=== PATIENT | female | born 1960 | race Caucasian/White ===

== ENCOUNTER → 2017-09-01 | Day surgery (SDC) | payer BC ==
[~2017-09-01] MED LIST: ASPI-183 PO; ASPI81 PO; AUGM875T3 PO; BUPIVACAINE/EPINEPHRINE 0.5% PF 10 ML VIAL ONE; HEPARIN SODIUM - IV 10,000 UNITS/10 ML VIAL ONE; LACTATED RINGER'S 1000 ML INJ 1,000 ML ONE; MIDAZOLAM HCL 2 MG/2 ML VIAL ONE; MULT-65 PO; PROPOFOL 500 MG/50 ML BTL IV ONE; ceFAZolin 2 GM PREMIX 50 ML ONE
--- NOTE | 2017-09-01 13:15 | TN ---
cc: Arias Mercer MD DATE OF SURGERY: 09/01/2017 DATE OF PROCEDURE: 09/01/2017 PREOPERATIVE DIAGNOSIS: Metastatic left breast cancer. POSTOPERATIVE DIAGNOSIS: Metastatic left breast cancer. PROCEDURE PERFORMED: Right subclavian Infusaport with intraoperative fluoroscopy. SURGEON: Arias Mercer MD ANESTHESIA: TIVA with local. COMPLICATIONS: None. INDICATIONS FOR PROCEDURE: Ms. Antonio is a very pleasant 57-year-old female who presented with a left axillary node. She underwent workup and this was found to be a metastatic left breast cancer. She is going to undergone neoadjuvant chemotherapy. She requires Infusaport placement for chemotherapy. Risks and benefits of Infusaport placement was discussed with her, and she was agreeable. DETAILS OF PROCEDURE: The patient was identified, brought to the operating room, and placed supine on the operating table. After adequate IV sedation was achieved, the anterior neck and chest was prepped and draped in standard surgical fashion. A 0.25% Marcaine was injected into the skin and subcutaneous tissue around the right clavicle. Right subclavian vein was then accessed without difficulty using 18-gauge needle. Guidewire was then advanced and followed with direct fluoroscopy to the level of the superior vena cava. Next, a subcutaneous pocket was made several centimeters away from the puncture site medial to the patient's bra strap area. A 0.25% Marcaine was injected and a transverse incision was made. Pocket was made with blunt dissection. Next, the introducer was placed over the guidewire and followed to the level of the superior vena cava using direct fluoroscopy. Next, the catheter was introduced and advanced to about 25 cm, again, with fluoroscopy. Catheter was then tunneled down to the Infusaport site using a hemostat. The catheter was then backed up to the level of the superior vena cava, right atrium junction. It was then attached to the port with the locking device. The port was placed into the pocket and secured with a 2-0 Prolene suture. Pocket was injected with additional local anesthetic and then closed in 2 layers with a 4-0 Vicryl. Sterile dressings were applied, and the patient was awakened, brought to recovery in stable condition. Chest x-ray will be obtained in the recovery room. Arias MD NESTOR Santana/OFELIA , 01:05 PM , 01:14 PM
== END | disposition home or self-care (01) ==
LOC: ESDC 10:56
PROVIDERS: ATTEND Surgery Trauma Surgery
DX: C50.912 Malignant neoplasm of unspecified site of left female breast (principal)
CPT/HCPCS: 00532; 36561; 77001; C1788; J0690; J1644; J2250; J3010; J7120

== ENCOUNTER 2017-09-08 09:02 | Day surgery (SDC) | payer BC ==
[2017-09-08] MEDS ORDERED: SODIUM CHLOR 0.9% 1000 ML IV (09:30)
[2017-09-08] MEDS: fentaNYL CITRATE 250 MCG/5 ML AMP (10:49)
[2017-09-08] MEDS: MIDAZOLAM HCL 5 MG/5 ML VIAL (10:50)
[2017-09-08] MEDS: LIDOCAINE HCL 1% 10 ML VIAL OTHER (11:45)
[2017-09-08] MEDS: IOHEXOL 350 MG/ML 50 ML BTL (for RAD DIAG) IVCONTRAST (13:36)
== END 2017-09-08 14:05 | disposition home or self-care (01) ==
LOC: HRAD 09:02 → HRIP 09:06 → HRAD 14:05
DX: C79.51 Secondary malignant neoplasm of bone (principal); C50.919 Malignant neoplasm of unspecified site of unspecified female breast; T85.698A Other mechanical complication of other specified internal prosthetic devices, implants and grafts, initial encounter; E78.5 Hyperlipidemia, unspecified; Z86.718 Personal history of other venous thrombosis and embolism
CPT/HCPCS: 20225; 36598; 77012; 88305; 88307; 88311; 88341; 88342; 99152; 99153

== ENCOUNTER 2017-09-10 09:55 | Day surgery (SDC) | payer BC ==
[~2017-09-10] VITALS: Ht 170.2 cm; Wt 102.5 kg
[2017-09-10] VITALS (7 sets, daily range): BP systolic 121–139; BP diastolic 66–83; PULSE 55–78; RESP 17–20; TEMP 97.8–98; O2SAT 94–97
[~2017-09-10 09:55] MED LIST changes: -ASPI81 PO; -AUGM875T3 PO; -BUPIVACAINE/EPINEPHRINE 0.5% PF 10 ML VIAL ONE; -HEPARIN SODIUM - IV 10,000 UNITS/10 ML VIAL ONE; -LACTATED RINGER'S 1000 ML INJ 1,000 ML ONE; -MIDAZOLAM HCL 2 MG/2 ML VIAL ONE; -PROPOFOL 500 MG/50 ML BTL IV ONE; -ceFAZolin 2 GM PREMIX 50 ML ONE
[2017-09-10] MEDS ORDERED: TYLE325T PO (10:22)
[2017-09-10] MEDS ORDERED: fentaNYL CITRATE 250 MCG/5 ML AMP ONE (11:36)
[2017-09-10] MEDS ORDERED: MIDAZOLAM HCL 5 MG/5 ML VIAL ONE (11:36)
[2017-09-10] MEDS ORDERED: IOHEXOL 350 MG/ML 100 ML BTL (for EPS) IVCONTRAST ONE (12:30)
--- NOTE | 2017-09-10 13:05 | PD.RAD ---
Post Procedure Progress Note Pre Procedure Diagnosis: (1) Malpositioned port catheter Post Procedure Diagnosis: (1) Malpositioned port catheter Procedure Date: September 10, 2017 Supervising Radiologist: Jericho Craven Proceduralist/Assist: Kim Bruce, RT(R)(), Mary Brown, RT(R), Other (Michael) Anesthesia: Local, Analgesia, Conscious Sedation Plan of Activity Patient to Unit: [facility] Patient Condition: Good See PACS Report for procedural detail/treatment Central Venous Access Device Procedure 1 Right Subclavian Infusaport Reposition (Port catheter in Azygous vein) single lumen Findings: Port catheter in Azygous. Archer wire placed around catheter with a Omniflush catheter. Tip of wire snared and catheter pulled into SVC. Position confirmed with port injection. Port flushes and aspirates without difficulty. Jericho Craven MD September 10, 2017 13:05
--- NOTE | 2017-09-10 13:59 | RADRPT ---
EXAM DATE/TIME: 09/10/2017 11:44 [facility] COMPARISON: [facility] ACCESS DEV PAT W/SVC, September 10, 2017, 11:44. INDICATIONS : Patient with a history of malignant neoplasm of lymph nodes. Recently placed port catheter was positi oned in the azygous vein. We have been asked to evaluate and possibly revise. MEDICAL HISTORY : Axillary lymphadenpathy DVT SURGICAL HISTORY : Hysterectomy Port placement ENCOUNTER: Subsequent ACUITY: 1 week PAIN SCORE: 0/10 FLUORO TIME: 11.8 minutes IMAGE SERIES: 5 SEDATION TIME: 30 minutes ACCESS: Right femoral vein SEDATION: 1.) 4 mg midazolam (Versed) IV 2.) 200 mcg fentanyl (Sublimaze) IV Prophylactic antibiotics were administered with appropriate pre-procedure timing. Vancomycin within 2 hours of procedure, Ancef (or alternative) within 1 hour of procedure. DEVICE: 1. 8 Citizen [place] single lumen [id number] PROCEDURE : 1. Continuous pulse oximetry and EKG monitoring. 2. Intravenous conscious sedation. 3. Fluoroscopic guided port revision. The patient was placed supine. The neck was prepped in sterile fashion. Full sterile technique was u sed, including cap, mask, sterile gloves and gown, and a large sterile sheet. Hand hygiene and 2% ch lorhexidine Betadine was utilized per protocol for cutaneous antisepsis with appropriate dry time for site. Sterile gel and sterile probe cover were utilized for ultrasound guidance. The skin and subc utaneous tissues were infiltrated with local anesthetic solution. The right common femoral vein was accessed. Through the 4 [place] sheath, a 90 cm Omni Flush catheter was advanced above the level of the right subclavian Ttaweb-u-Ikwj catheter. Using the hook configura tion in the Omni Flush, an exchange Glidewire was advanced over the catheter, back down through the S VC, through the right atrium and into the IVC. At this point, the 4 [place] sheath was exchanged for a 25 cm 7 [place] side-port sheath. A 4 [place], 10 mm gooseneck stent was then advanced through the she ath and used to snare the tip of the previously placed guidewire. The wire tip was pulled back into t he sheath and simultaneously, the tip of the catheter was successfully removed from the azygous and r epositioned into the SVC/right atrium. The port itself was then accessed in a sterile fashion. Ports aspirated and flushed without difficult y. The port was then injected with positive contrast confirming appropriate positioning within the ce ntral venous system. Conscious sedation was performed with the prescribed dosages and duration as above in the presence of an independent trained radiology nurse to assist in the monitoring of the patient. EKG and oximetry remained stable throughout the procedure. The patient tolerated the procedure well and there were n o complications. The patient was sent to post anesthesia recovery in stable condition. CONCLUSION: Uncomplicated fluoroscopic guided port revision as described in detail above. Jericho Craven MD on September 10, 2017 at 13:49 Board Certified Radiologist. This report was verified electronically.
--- NOTE | 2017-09-10 14:01 | RADRPT ---
EXAM DATE/TIME: 09/10/2017 11:44 [facility] COMPARISON: [facility] ACCESS DEV PAT W/SVC, September 08, 2017, 13:40. INDICATIONS : Patient with a history of malignant neoplasm of lymph nodes MEDICAL HISTORY : Axillary lymphadenopathy DVT SURGICAL HISTORY : Hysterectomy Port placement ENCOUNTER: Initial ACUITY: 2 weeks PAIN SCORE: 0/10 FLUORO TIME: 11.8 minutes IMAGE SERIES: 5 ACCESS: Right port MEDICATION(S): 1.) 4 mg midazolam (Versed) IV 2.) 200 mcg fentanyl (Sublimaze) IV DEVICE(S): 1.) 8 [place] single lumen infusaport PROCEDURE : 1. Access of Auhmov-v-mzey. 2. Port patency injection. The risks, benefits and alternatives to the procedure were explained and verbal and written consent w as obtained. The patient was placed supine. The port was prepped in sterile fashion. Full sterile t echnique was used, including cap, mask, sterile gloves and gown, and a large sterile sheet. Hand hyg iene and 2% chlorhexidine prep was utilized per protocol for cutaneous antisepsis with appropriate dr y time for site. The previously placed port was accessed and positive contrast was injected for evaluation. Injection demonstrates portacatheter is now appropriately positioned within the central venous system. The por t aspirates and flushes without difficulty. CONCLUSION: Right subclavian Vrwoaj-o-Frak catheter is widely patent, properly positioned and functions norm ally. Jericho Craven MD on September 10, 2017 at 13:57 Board Certified Radiologist. This report was verified electronically.
== END 2017-09-10 15:00 | disposition home or self-care (01) ==
LOC: HROP 09:55 → HRIP 09:59 → HROP 15:00
PROVIDERS: ATTEND Surgery Trauma Surgery
DX: Z45.2 Encounter for adjustment and management of vascular access device (principal); C50.912 Malignant neoplasm of unspecified site of left female breast; C79.51 Secondary malignant neoplasm of bone
CPT/HCPCS: 36597; 76937; 77001; 99152; 99153; C1769; C1773; C1887; C1894; J1642; J2250; J3010; Q9967